=== PATIENT | male | born 1960 | race Caucasian/White ===

== ENCOUNTER 2019-09-05 17:22 | Emergency (ER) | payer BC ==
--- OUTSIDE RECORDS SUMMARY | 2019-09-05 17:40 | XMS REPORT | Continuity of Care Document ---
:1960 External Reference #:[id number] Author Name Maia Encinas, BRYANT Address [address] [place] [id number] Care Team Providers Name Role Phone Idris Orosco M.D. - Urology Care Team Information Acid Blower Yarn Dumper - Gastroenterology Care Team Information Acid Blower [phone] Lion Barron MD - Surgery Care Team Information Acid Blower [phone] Ke Fletcher M.D. - Sports Medicine Care Team Information Acid Blower Jarrett Pereyra MD - Gastroenterology Care Team Information Acid Blower [phone] [employer] - Contract Loader Care Team Information Acid Blower [phone] Enrique Pope DPM - Rn Family Care Team Information Acid Blower [phone] [facility] Urology Care Team Information Acid Blower [phone] Hearing Aide Consultants - Care Team Information Acid Blower [phone] Surveillance Specialist [place] [employer] - Ophthalmology Care Team Information Acid Blower [phone] Manas Brewer MD - Urology Care Team Information Acid Blower [phone] Bony Estrada Care Team Information Acid Blower [phone] Ramy Restrepo MD - Orthopaedic Care Team Information Acid Blower [phone] Surgery Problems Active Problems Provider Date Gastritis Nancy Ambrocio MD Onset: 08/11/2014 Benign essential hypertension Nancy Ambrocio MD Onset: 08/07/2013 Type 2 diabetes mellitus Nancy Ambrocio MD Onset: 04/10/2013 FH: Diabetes mellitus Nancy Ambrocio MD Onset: 04/20/2012 Varicose veins of lower extremity Nancy Ambrocio MD Onset: 04/11/2011 Family history of ischemic heart disease Nancy Ambrocio MD Onset: 2010 Benign prostatic hypertrophy without outflow Nancy Ambrocio MD Onset: obstruction Vitamin D deficiency Nancy Ambrocio MD Onset: 01/04/2011 Testicular hypofunction Nancy Ambrocio MD Onset: 04/09/2010 Impotence of organic origin Nancy Ambrocio MD Onset: 12/07/2005 Mixed hyperlipidemia Nancy Ambrocio MD Onset: 12/07/2005 Pure hypercholesterolemia Onset: 12/20/2014 Essential hypertension Nancy Ambrocio MD Onset: 10/02/2015 Vitamin B deficiency Nancy Ambrocio MD Onset: 04/11/2016 Gastro-esophageal reflux disease with Nancy Ambrocio MD Onset: 07/05/2017 esophagitis Peptic reflux disease Nancy mAbrocio MD Onset: 07/05/2017 Gastro-esophageal reflux disease with Nancy Ambrocio MD Onset: 04/18/2018 esophagitis Social History Type Date Description Comments Sex Unknown ETOH Use Occasionally consumes alcohol Tobacco Use Start: Unknown Patient has never smoked Smoking Status Reviewed: 11/23/18 Patient has never smoked Exercise 08/11/2014 Exercises sporadically dancing, 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, "working out"; 08/11/2014 counselled 150min per week, 10k steps per day Allergies, Adverse Reactions, Alerts Description No Known Drug Allergies Medications Active Medications SIG Qnty Indications Ordering Date Provider Fluticasone [place] 2 Sprays Into 48ml Cristóbal, 06/13/2019 Propionate Each Nostril Every MD Nancy 50mcg/Act Day Suspension Tadalafil take 1 tablet by 30tabs N52.9 Cristóbal, 05/22/2019 10mg mouth every day MD Nancy Tablets when intercourse is desired E29.1 Lisinopril 1 by mouth every 90tabs E11.9 Nancy Ambrocio MD 05/22/2019 2.5mg Tablets day I10 Jentadueto XR 1 by mouth daily with 90tabs E11.9 Nancy Ambrocio, 2018 first bite of evening 5-1000mg Tablets ER meal 24HR Atorvastatin Calcium take 1/2 tablet by 45tabs E78.2 Nancy Ambrocio, mouth every day MD 20mg Tablets Vitamin B-12 1 by mouth every day E53.9 Nancy Ambrocio, 10/02/2015 1000mcg MD Tablets Sub Aspirin Enteric 1 by mouth every day E11.9 Nancy Ambrocio, 02/13/2015 Coated Adult Low MD Strength 81mg Tablets DR Vitamin D-3 1 by mouth daily with 30tabs E55.9 Nancy Ambrocio, 2014 5000Unit dinner with meat Tablets /fat/oil Duy Multivitamin 1 po daily with dinner E55.9 Nancy Ambrocio, 2014 For Men MD Tablets Omeprazole take 1 capsule by 90caps K21.0 Nancy Ambrocio, 06/03/2012 20mg mouth daily 30min Capsules DR before a meal Testosterone inject 400mg im every 2ml E29.1 Idris Orosco, Cypionate month, bring to office M.D. 200mg/ml for administration Solution Symbicort 1 inhalation twice K21.0 Jarrett Pereyra MD daily rinse mouth and 160-4.5mcg/Act spit, rinse and Aerosol swallow to follow History Medications Fluticasone 2 sprays to 16gm H68.012 Nancy Ambrocio, 05/22/2019 - Propionate each nostril 06/13/2019 daily 50mcg/Act Suspension Metformin HCL ER 2 po daily with 60tabs E11.9 Nancy Ambrocio, 2018 - first bite of 03/27/2019 750mg Tablets ER evening meal 24HR Immunizations CPT Code Status Date Vaccine Reaction Lot # [id number] Given 07/08/2019 Influenza Virus Vaccine,Quadrivalent,Split,Preserv Free, 0.5mL,[place] [address] Given 11/23/2018 Tdap (Adacel) Ages 7 And Above Only [id number] 55434 Given 08/05/2017 Influenza Virus Vaccine,Quadrivalent,Split,Preserv Free, 0.5mL,Im 52232 Given 09/04/2016 Influenza Virus Vaccine,Quadrivalent,Split,Preserv Free, 0.5mL,Im Q2037 Given 12/14/2015 Fluvirin Immunization 30062 Given 12/27/2013 Pneumococcal 23 Immunization Adult Or Immunosuppressed Patient 53609 Given 08/07/2013 Afluria Or Fluvirin Flu Vac Intramuscular 26178 Given 08/03/2012 Afluria Or Fluvirin Flu Vac Intramuscular 07707 Given 04/08/2009 Tdap (Adacel) Ages 7 And Above Only 30399 Given 11/20/2002 Tetanus And Diptheria Toxoids For Adult Use-preservative free 05849 Refused 07/16/2019 Shingrix (Shingles) Zoster AWARE CAN GET AT PHARMACY Vaccine HZV, Recombinant, Subunit, Adj Q2039 Refused 11/23/2018 Flu Vaccine NOS 67603 Refused 10/04/2018 Influenza Vac, Quadrivalent, Split, 0.5mL Dosage, Im Use 02787 Refused 10/02/2015 Influenza Virus Vaccine,Quadrivalent,Split,Prese rv Free, 0.5mL,[place] [address]56 Refused 02/13/2015 Influenza Virus Vaccine,Quadrivalent,Split,Prese rv Free, 0.5mL,Im Vital Signs Date Vital Result Comment 08/14/2019 10:59am Body Temperature 98.7 F Weight 217.00 lb Heart Rate 100 /min BP Systolic 128 mmHg BP Diastolic 90 mmHg Respiratory Rate 18 /min Height 68.5 inches 5'8.50" BMI (Body Mass Index) 32.5 kg/m2 07/16/2019 3:37pm Body Temperature 98.7 F Weight 218.00 lb Heart Rate 88 /min BP Systolic 114 mmHg BP Diastolic 68 mmHg Respiratory Rate 18 /min Height 68.5 inches 5'8.50" O2 % BldC Oximetry 96 % Ra BMI (Body Mass Index) 32.7 kg/m2 Results Test Date Facility Test Result H/L Range Note Laboratory test finding 08/14/2019 [facility] Lipase <pending> Laboratory test finding 07/12/2019 [facility] Hematocrit 55.0 % High 41.0- 53.0 1, 2 PSA 4.160 ng/mL High 0.000-4.000 3 Testosterone,Free & 07/12/2019 [facility] Testosterone Total 95 ng/dL Low 285-950 Total-Male Adult Male Sex Hormone Binding Globulin 12.8 nmol/L Low 13.3-89.5 Testosterone Free Adult Male 27 pg/mL Low 50-247 Testosterone Percent Free 2.8 % 1.8-3.2 Hemoglobin A1c 05/08/2019 [facility] Hemoglobin A1c 6.7 % High 4.1-5.9 Estimated Average Glucose Calc 146 mg/dL High 71-140 Comprehensive Met Panel-[facility] 05/08/2019 [facility] Sodium 138 mmol/L 135- 146 4 Potassium 4.1 mmol/L 3.5-5.2 Chloride# 99 mmol/L 97-110 5 Carbon Dioxide 28 mmol/L 24-34 Calcium 9.4 mg/dL 8.5-10.5 6 Glucose 137 mg/dL High 70-105 BUN 17 mg/dL 6-26 Creatinine 1.2 mg/dL 0.5-1.4 Total Protein 6.3 g/dL 6.0-8.0 Albumin 4.2 g/dL 3.6-4.9 Globulin 2.1 g/dL 2.0-3.5 A/G Ratio 2.0 Ratio 1.0-2.2 Total Bilirubin 0.8 mg/dL 0.1-1.3 Alkaline Phosphatase 41 U/L 24-140 Alt 25 U/L 3-42 Ast 17 U/L 8-42 Anion Gap 11 mmol/L 5-15 7 Female Egfr 52 Low >60 8 Male Egfr 69 >60 9 Lipid 05/08/2019 [facility] Cholesterol 137 mg/dL 50-199 Triglycerides 339 mg/dL High 30-200 HDL 31 mg/dL 29-71 10 Chol/ HDL Ratio 4.4 ratio 4.0-6.7 VLDL 68 mg/dL High 2-29 LDL (Calc) 38 mg/dL 20-99 11 Laboratory test finding 05/08/2019 [facility] CPK 184 U/L 12-199 CBC with Auto Diff-fcmg 05/08/2019 [facility] WBC 9.1 K/uL 4.1-11.0 RBC 6.07 M/uL 4.60-6.10 Hemoglobin 17.9 gm/dL 13.5-18.0 Hematocrit 53.6 % High 41.0-53.0 MCV 88.4 fL 80.0-97.0 MCH 29.5 pg 27.0-32.0 MCHC 33.4 g/dL 32.0-36.0 RDW 15.0 % High 11.5-14.5 PLT Count 129 K/ul Low 140-400 MPV 11.1 FL High 7.1-10.7 Manual Differential 05/08/2019 [facility] Neutrophils 69 % 35-75 Band 0 % 0-11 Lymphocytes 23 % 16-52 Monocytes 6 % 0-8 Eosinophils 1 % 0-5 Basophils 1 % 0-4 Abs Neutrophils# 6.3 K/ul 1.8-7.7 Abs Lymphocytes# 2.1 K/ul 1.2-4.8 Abs Monocytes# 0.6 K/ul 0.0-0.8 Abs Eosinophils# 0.1 K/ul 0.0-0.5 Abs Basophils# 0.1 K/ul 0.0-0.3 Abs BandCells# 0.0 K/ul 0.0-1.2 Platelet Estimate SLDEC Abnormal Normal RBC Morphology NORMAL Normal Laboratory test finding 05/08/2019 [facility] Vitamin D 25 Hydroxy 52 ng/mL 30-100 12 1 before visit 11/2019 Critical Result HGB:18.8 Called to and Read back by: CHRISSY NURSE at: 07/12/2019 13:55:15 by:RYAN PEREZ before visit 11/2019 Critical Result HGB:18.8 Called to and Read back by: CHRISSY NURSE at: 07/12/2019 13:55: 15 by:RYAN PEREZ before visit 11/2019 2 HCT only orderecd--analyzer runs cbc. Hgb was found to be critical on run, called to notify nurse Chrissy of critical Hgb--jk 3 Beginning 01/15/07 PSA values assayed at [facility] uses chemiluminescence methodology manufactured by Michelle [employer] for use on the DXI analyzer. Values obtained with different assay methods or kits can not be used interchangeably. Serum PSA measurement is not an absolute test for malignancy. The PSA value should be used in conjunction with information available from clinical evaluation and other diagnostic procedures. 4 Updated reference range on new analyzer 5 Updated reference range on new analyzer 6 Updated reference range 03-20-2019 7 Updated Reference Range 8 Concerning GFR Guidelines for Americans: Normal function or mild renal disease, if clinically at risk: >/= 60 mL/min Moderately decreased: 30-59 Severely decreased: 15-29 Renal failure: <15 There is reduced accuracy above 60ml/min/1.73 m squared, but the numeric value may be clinically useful in the near 60 range 9 Concerning GFR Guidelines: Normal function or mild renal disease, if clinically at risk: >/= 60 mL/min Moderately decreased: 30-59 Severely decreased: 15-29 Renal failure: <15 There is reduced accuracy above 60ml/min/1.73 m squared, but the numeric value may be clinically useful in the near 60 range Glomerular Filtration Rate (GFR) is estimated based on the CKD-EPI equation, which assumes a steady state for creatinine as recommended by the National Kidney Disease Education Program in conjunction with the National Institutes of Health and the National Kidney Foundation. Clinical conditions in which it may be necessary to measure GFR by using clearance methods include extremes of age and body size, severe malnutrition or obesity, diseases of skeletal muscle, paraplegia or quadriplegia, vegetarian diet, rapidly changing kidney function, and calculation of the dose of potentially toxic drugs that are excreted by the kidneys. 10 Per NCEP ATP III Guidelines: Results lower than 40 mg/dL are suggestive of increased risk for coronary artery disease. Results > or = to 60 mg/dL are considered a negative risk factor. 11 Per NCEP ATP III Guidelines: Normal Population <130 Patients with medical conditions: CHD/DM Optimal: <100 Borderline high: 130-159 High: 160-189 Very high: >189 12 Clinical Guidelines for recommended serum 25(OH)Vitamin D Deficient at less than 20 ng/mL Insufficient at 20 to <30 ng/mL Sufficient at 30-100 ng/mL Toxicity at greater than 100 ng/mL Procedures Date Code Description Status 02/19/2015 426771138 Bone Mineral Density Test Completed 03/29/2012 [id number] Colonoscopy Completed Medical Devices Description No Information Available Encounters Type Date Location Provider Dx Diagnosis Office Visit 07/16/2019 [facility] Nancy Ambrocio, S76.202A Unsp injury of 3:45p adductor musc/fasc/tend LEFT thigh, init E66.9 Obesity, unspecified Z68.32 Body mass index (BMI) 32.0-32.9, adult Office Visit 05/22/2019 8:30a [facility] Nancy Ambrocio MD E11.9 Type 2 diabetes mellitus without complications E78.2 Mixed hyperlipidemia E29.1 Testicular hypofunction I10 Essential (primary) hypertension K21.0 Gastro-esophageal reflux disease with esophagitis N52.9 Male erectile dysfunction, unspecified N40.0 Benign prostatic hyperplasia without lower urinry tract symp E66.9 Obesity, unspecified E55.9 Vitamin D deficiency, unspecified D69.6 Thrombocytopenia, unspecified H68.012 Acute Eustachian salpingitis, LEFT ear Z13.31 Encounter for screening for depression Z68.33 Body mass index (BMI) 33.0-33.9, adult Assessments Date Code Description Provider 08/14/2019 R10.84 Generalized abdominal pain Maia Encinas PA 08/14/2019 Z68.32 Body mass index (BMI) 32.0-32.9, adult Maia Encinas PA 08/14/2019 R10.84 Generalized abdominal pain Schedule, Laboratory 07/16/2019 S76.202A Unspecified injury of adductor muscle, Nancy Ambrocio MD fascia and tendon of LEFT thigh, initial encounter 07/16/2019 E66.9 Obesity, unspecified Nancy Ambrocio MD 07/16/2019 Z68.32 Body mass index (BMI) 32.0-32.9, adult Nancy Ambrocio MD 07/12/2019 R79.89 Other specified abnormal findings of blood Nancy Ambrocio MD chemistry 07/12/2019 R79.89 Other specified abnormal findings of blood Schedule, Laboratory chemistry 07/12/2019 R79.89 Other specified abnormal findings of blood [facility] chemistry 05/22/2019 E11.9 Type 2 diabetes mellitus without Nancy Ambrocio MD complications 05/22/2019 E78.2 Mixed hyperlipidemia Nancy Ambrocio MD 05/22/2019 E29.1 Testicular hypofunction Nancy Ambrocio MD 05/22/2019 I10 Essential (primary) hypertension Nancy Ambrocio MD 05/22/2019 K21.0 Gastro-esophageal reflux disease with Nancy Ambrocio MD esophagitis 05/22/2019 N52.9 Male erectile dysfunction, unspecified Nancy Ambrocio MD 05/22/2019 N40.0 Benign prostatic hyperplasia without lower Nancy Ambrocio MD urinary tract sym 05/22/2019 E66.9 Obesity, unspecified Nancy Ambrocio MD 05/22/2019 E55.9 Vitamin D deficiency, unspecified Nancy Ambrocio MD 05/22/2019 D69.6 Thrombocytopenia, unspecified Nancy Ambrocio MD 05/22/2019 H68.012 Acute Eustachian salpingitis, LEFT ear Nancy Ambrocio MD 05/22/2019 Z13.31 Encounter for screening for depression Nancy Ambrocio MD 05/22/2019 Z68.33 Body mass index (BMI) 33.0-33.9, adult Nancy Ambrocio MD 05/08/2019 E11.9 Type 2 diabetes mellitus without Nancy Ambrocio MD complications 05/08/2019 E11.9 Type 2 diabetes mellitus without Schedule, Laboratory complications 05/08/2019 E78.2 Mixed hyperlipidemia Nancy Ambrocio MD 05/08/2019 E78.2 Mixed hyperlipidemia Schedule, Laboratory 05/08/2019 E29.1 Testicular hypofunction Nancy Ambrocio MD 05/08/2019 E29.1 Testicular hypofunction Schedule, Laboratory 05/08/2019 D69.6 Thrombocytopenia, unspecified Nancy Ambrocio MD 05/08/2019 D69.6 Thrombocytopenia, unspecified Schedule, Laboratory 05/08/2019 E55.9 Vitamin D deficiency, unspecified Nancy Ambrocio MD 05/08/2019 E55.9 Vitamin D deficiency, unspecified Schedule, Laboratory 05/08/2019 E11.9 Type 2 diabetes mellitus without [facility] complications 05/08/2019 E78.2 Mixed hyperlipidemia [facility] 05/08/2019 E29.1 Testicular hypofunction [facility] 05/08/2019 D69.6 Thrombocytopenia, unspecified [facility] 05/08/2019 E55.9 Vitamin D deficiency, unspecified [facility] Plan of Treatment Future Appointment(s):11/21/2019 8:05 am - Schedule, Laboratory at [facility]2019 8:30 am - Nancy Ambrocio MD at [facility]08/14/2019 - Maia Encinas, PAR10.84 Generalized abdominal painNew Xrays:CT Abd/Pelvis W/O Contrast, Scheduled: 08/14/19Comments:Diffused abd painWill check labs and CT for eval and treat as indicatedBland diet, push fluidsAdvised to go call/to ER with fevers, chills, worsening pain, vomiting, diarrhea, blood in stoolFollow up: PrnZ68.32 Body mass index (BMI) 32.0-32.9, adult Functional Status Description No Information Available Mental Status Description No Information Available Referrals Refer to Dr Reason for Referral Status Appt Date Carlos Lee MD 58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 faxed 07/17 -TRS Called office and spoke to Celia, pt's account is locked and she cannot schedule pt. She was unable to tell me why the account was locked. LMTCB on pt's mobile to call office to get this figured out. -TRS 07/17 Patient contacted and aware of time and date of appt. Also mailed referral so he would have address and phone number of office location 07/17 [address] [facility] [address] [phone]
--- OUTSIDE RECORDS SUMMARY | 2019-09-05 17:40 | XMS REPORT | Continuity of Care Document ---
:1960 External Reference #:[id number] Author Name Nancy Ambrocio MD Address [address] [place] [phone] Care Team Providers Name Role Phone Idris Orosco M.D. - Urology Care Team Information Economics Faculty Member [facility] - Gastroenterology Care Team Information Economics Faculty Member [phone] Lion Barron MD - Surgery Care Team Information Economics Faculty Member [phone] Ke Fletcher M.D. - Sports Medicine Care Team Information Economics Faculty Member Jarrett Pereyra MD - Gastroenterology Care Team Information Economics Faculty Member [phone] [employer] - Pipe Fitter [employer] Care Team Information Economics Faculty Member [phone] Enrique Pope DPM - Mechanical Assembly Technician Care Team Information Economics Faculty Member [facility] Urology Care Team Information Economics Faculty Member [phone] Hearing Aide Consultants - Care Team Information Economics Faculty Member [phone] Veterinary Science Teacher [place] [employer] - Ophthalmology Care Team Information Economics Faculty Member Manas Brewer MD - Urology Care Team Information Economics Faculty Member [phone] Bony Estrada Care Team Information Economics Faculty Member [phone] Ramy Restrepo MD - Orthopaedic Care Team Information Economics Faculty Member [phone] Surgery Problems Active Problems Provider Date Gastritis [...] Onset: 07/05/2017 esophagitis Peptic reflux disease Nancy Ambrocio MD Onset: 07/05/2017 Gastro-esophageal reflux disease with Nancy Ambrocio MD Onset: 04/18/2018 esophagitis Social History Type Date Description Comments Sex Unknown ETOH Use Occasionally consumes alcohol Tobacco Use Start: Unknown Patient has never smoked Smoking Status Reviewed: 11/23/18 Patient has never smoked Exercise 08/11/2014 Exercises sporadically dancing, 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, "working out"; 08/11/2014 counselled 150min per week, 10k steps per day Allergies, Adverse Reactions, Alerts Description No Known Drug Allergies Medications Active Medications SIG Qnty Indications Ordering Date Provider Fluticasone [place] 2 Sprays Into 48ml Cristóbal, 06/13/2019 Propionate [...] every day E53.9 Nancy Ambrocio, 10/02/2015 1000mcg Tablets Sub Aspirin Enteric 1 by mouth [...] Code Status Date Vaccine Reaction Lot # [id number] Given 07/08/2019 Influenza Virus Vaccine,Quadrivalent,Split,Preserv Free, 0.5mL,Im 05870 Given 11/23/2018 Tdap (Adacel) Ages 7 And Above Only [id number] 50076 Given 08/05/2017 Influenza Virus Vaccine,Quadrivalent,Split,Preserv Free, 0.5mL,Im 07905 Given 09/04/2016 Influenza Virus Vaccine,Quadrivalent,Split,Preserv Free, 0.5mL,Im Q2037 Given 12/14/2015 Fluvirin Immunization 07454 Given 12/27/2013 Pneumococcal 23 Immunization Adult Or Immunosuppressed Patient 91340 Given 08/07/2013 Afluria Or Fluvirin Flu Vac Intramuscular 47054 Given 08/03/2012 Afluria Or Fluvirin Flu Vac Intramuscular 81447 Given 04/08/2009 Tdap (Adacel) Ages 7 And Above Only 47770 Given 11/20/2002 Tetanus And Diptheria Toxoids For Adult Use-preservative free 73718 Refused 07/16/2019 Shingrix (Shingles) Zoster AWARE CAN GET AT PHARMACY Vaccine HZV, Recombinant, Subunit, Adj Q2039 Refused 11/23/2018 Flu Vaccine NOS 15880 Refused 10/04/2018 Influenza Vac, Quadrivalent, Split, 0.5mL Dosage, Im Use 51669 Refused 10/02/2015 Influenza Virus Vaccine,Quadrivalent,Split,Prese rv Free, 0.5mL,Im 53153 Refused 02/13/2015 Influenza Virus Vaccine,Quadrivalent,Split,Prese rv Free, 0.5mL,Im Vital Signs Date Vital Result Comment 07/16/2019 3:37pm Body Temperature 98.7 F Weight 218.00 lb Heart Rate 88 /min BP Systolic 114 mmHg BP Diastolic 68 mmHg Respiratory Rate 18 /min Height 68.5 inches 5'8.50" O2 % BldC Oximetry 96 % Ra BMI (Body Mass Index) 32.7 kg/m2 05/22/2019 8:27am Weight 223.00 lb Heart Rate 72 /min BP Systolic 120 mmHg BP Diastolic 80 mmHg Respiratory Rate 18 /min Height 68.5 inches 5'8.50" BMI (Body Mass Index) 33.4 kg/m2 Results Test Date Facility Test Result H/L Range Note Laboratory test finding 07/12/2019 [facility] Hematocrit 55.0 [...] HGB:18.8 Called to and Read back by: DAWNA NURSE at: 07/12/2019 13:55:15 by:RYAN PEREZ before visit 11/2019 Critical Result HGB:18.8 Called to and Read back by: DAWNA NURSE at: 07/12/2019 13:55: 15 by:RYAN PEREZ before visit 11/2019 2 HCT only orderecd--analyzer runs cbc. Hgb was found to be critical on run, called to notify nurse Dawna of critical Hgb--jk 3 Beginning 01/15/07 PSA values assayed at [facility] uses chemiluminescence methodology manufactured by [employer] for use on the DXI analyzer. Values [...] ng/mL Procedures Date Code Description Status 02/19/2015 [id number] Bone Mineral Density Test Completed 03/29/2012 [id number] Colonoscopy Completed Medical Devices Description No Information Available Encounters Type Date Location Provider Dx Diagnosis Office Visit 05/22/2019 [facility] Nancy Ambrocio, E11.9 Type 2 diabetes 8:30a mellitus without complications E78.2 Mixed hyperlipidemia E29.1 [...] 33.0-33.9, adult Assessments Date Code Description Provider 07/16/2019 S76.202A Unspecified injury of adductor muscle, [...] Appointment(s):11/21/2019 8:05 am - Schedule, Laboratory at [facility]2019 8:30 am - Nancy Ambrocio MD at [facility]07/16/2019 - Nancy Ambrocio, MDS76.202A Unspecified injury of adductor muscle, fascia and tendon of LEFT thigh, initial encounterComments:58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 in meantime, rest, avoid stressing area. 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 [address] [id number] [phone]
[2019-09-05 18:02] VITALS: BP 109/71
--- NOTE | 2019-09-05 18:50 | UC ---
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 -nomrally gets resolution w/ chiro adjustment, howevre he has had no relief after 3 treatments. -has done PT in past and does some exercises that eh learned from PT and chiro. -has never been shown piriformis stretch -no signfiicant relief w/ MERRY. does not have msuckle relaxant -no loss bowel/bladder fxn. no w/n/t. -does not think he has ever had xrays. -no h/o cancer. -pain starts at right buttocks and radiates down back of rt thgh and ends at rt lower medial wall. - History of Current Complaint Chief Complaint: UCBackPain Stated Complaint: LOW BACK/LEG PAIN Time Seen by Provider: 09/05/19 18:40 Pain Intensity: 7 - Allergies/Home Medications Allergies/Adverse Reactions: Allergies Allergy/AdvReac Type Severity Reaction Status Date / Time No Known Allergies Allergy Verified 09/05/19 17:55 Home Medications: Home Medications Budesonide/Formote 160/4.5(NF) [Symbicort 160/4.5 (NF)] 1 puff INH DAILY [History Confirmed 09/05/19] Cholecalciferol TAB* [Vitamin D TAB*] 1,000 unit PO DAILY 09/05/19 [History Confirmed 09/05/19] PMH/Surg Hx/FS Hx/Imm Hx Previously Healthy: Yes Endocrine History: Diabetes Cardiovascular History: Hypertension - Surgical History Surgical History: Yes Surgery Procedure, Year, and Place: vasectomy. Hernia repair - Family History Known Family History: Positive: Hypertension - Social History Alcohol Use: Occasionally Substance Use Type: Excessive Caffeine Smoking Status (MU): Never Smoked Tobacco Review of Systems All Other Systems Reviewed And Are Negative: Yes Constitutional: Positive: Negative Skin: Positive: Negative. Negative: Rash Eyes: Positive: Negative ENT: Positive: Negative Respiratory: Positive: Negative Cardiovascular: Positive: Negative Gastrointestinal: Positive: Negative Genitourinary: Positive: Negative Motor: Positive: Other - see above.. Negative: Decreased ROM, Weakness Neurovascular: Positive: Negative Musculoskeletal: Positive: Myalgia Neurological: Positive: Negative. Negative: Weakness, Paresthesia, Numbness Psychological: Positive: Negative Is Patient Immunocompromised?: No Physical Exam Triage Information Reviewed: Yes Appearance: Well-Appearing, No Pain Distress, Well-Nourished - very pleasant Vital Signs: Initial Vital Signs Temp 98.8 F 09/05/19 17:57 Pulse 83 09/05/19 17:57 Resp 20 09/05/19 17:57 BP 109/71 09/05/19 17:57 Pulse Ox 97 09/05/19 17:57 Vital Signs Reviewed: Yes Eye Exam: Normal ENT Exam: Normal Neck exam: Normal Respiratory Exam: Normal Respiratory: Positive: Lungs clear Cardiovascular Exam: Normal Cardiovascular: Positive: RRR Abdominal Exam: Normal Musculoskeletal: Positive: Strength Intact, ROM Intact, No Edema, Other: - spine NT to palp. no paraspineal tenderness. Rt sciatic notch tender. Neg SLR b/ l. + 2 b/l patella and symetric. sens intact to LT. + repoduction of pain w/ piriformis stretch in exam room. good relief. Neurological Exam: Normal Psychological Exam: Normal Skin Exam: Normal Skin: Negative: Rashes Back Pain Course/Dx - Course Course Of Treatment: -has never had xray. I recommend getting an xray howvere he does not wish to wait for delayed xray tonight. It is acceptable to get in 1 wk as there is no trauma or suspicion for frx at this time. -he gets good relief from piriformis stretch that repoduces site of greatest pain in buttocks. able to do the stretch, - Differential Dx/Diagnosis Differential Diagnosis/HQI/PQRI: Herniated Disc, Strain, Sprain Provider Diagnosis: Right sided sciatica Discharge ED - Sign-Out/Discharge Documenting (check all that apply): Patient Departure All imaging exams completed and their final reports reviewed: No Studies - Discharge Plan Condition: Stable Disposition: HOME Prescriptions: Cyclobenzaprine HCl 5 mg PO QPM PRN 7 Days #7 tablet PRN Reason: Pain - Severe Patient Education Materials: Piriformis Syndrome (ED) Referrals: Nancy Ambrocio MD [Primary Care Provider] - 7 Days Additional Instructions: -I recommend consideration for xrays to be done as you do not think you have ever had any done. We talked about the impritance of stretching the piriformis muscle as shown today as well as the hip flexor to relieve the tight muscles. You can google gentle stretches called swan pose, pigeon pose and lizard pose to help with the tightness. Medical massage would likely be beneficial to help stretch you as well. -Do not drive or operate heavy machinery within 8-10 hrs of taking the cyclobenzaprine. - Billing Disposition and Condition Condition: STABLE Disposition: Home
[2019-09-05] MEDS ORDERED: Cyclobenzaprine TAB* 10 MG PO ONE (19:08)
== END 2019-09-05 19:20 | disposition home or self-care (01) ==
LOC: UCCORT 17:22
DX: M54.41 Lumbago with sciatica, right side (principal); E11.9 Type 2 diabetes mellitus without complications; I10 Essential (primary) hypertension
CPT/HCPCS: 99212; A9270-GY; G0463